=== PATIENT | female | born 1995 | race Caucasian/White ===

== ENCOUNTER 2021-05-16 08:09 | Emergency (ER) | payer OTHER, BC ==
[2021-05-16] MEDS ORDERED: Lidocaine 1% (PF) 30 ML VIAL ONE (08:21)
[2021-05-16] MEDS ORDERED: Lidocaine 1% w/Epinephrine 1:100K 20 ML VIAL ONE (08:23)
[2021-05-16] MEDS ORDERED: Bacitracin 1 PK ONE (10:00)
[2021-05-16] MEDS ORDERED: Boostrix 0.5 ML (Tdap) VIAL ONE (10:07)
== END 2021-05-16 10:15 | disposition home or self-care (01) ==
LOC: CSHERS 08:09
DX: S01.511A Laceration without foreign body of lip, initial encounter (principal); Z23 Encounter for immunization; W54.0XXA Bitten by dog, initial encounter
CPT/HCPCS: 12052; 90471; 90715; J2001